=== PATIENT | female | born 1990 | race Caucasian/White ===

== ENCOUNTER 2022-11-23 08:38 | Emergency (ER) | payer OTHER ==
[~2022-11-23] VITALS: Ht 152.4 cm; Wt 75.7 kg
[2022-11-23 08:42] VITALS: BP 134/70; PULSE 90; RESP 15; TEMP 98.1; O2SAT 98
[2022-11-23 09:09] VITALS: BP 125/66; PULSE 75; RESP 14; TEMP 206.8; O2SAT 99
[2022-11-23] MEDS ORDERED: KETOROLAC 60 MG/2 ML VIAL IM ONE (10:05)
[2022-11-23] MEDS ORDERED: IBUP-2213 PO (10:47)
[2022-11-23] MEDS ORDERED: ACET-8905 PO (10:47)
== END 2022-11-23 11:03 | disposition home or self-care (01) ==
LOC: MED 08:38
DX: S62.617A Displaced fracture of proximal phalanx of left little finger, initial encounter for closed fracture (principal); V49.88XA Car occupant (driver) (passenger) injured in other specified transport accidents, initial encounter; Y93.89 Activity, other specified; Y92.89 Other specified places as the place of occurrence of the external cause; Y99.8 Other external cause status
CPT/HCPCS: 29130; 73130; 96372; 99283; J1885